=== PATIENT | female | born 1940 | race Asian ===

== ENCOUNTER 2024-02-01 22:45 | Observation (INO) | payer OTHER ==
[2024-02-01 22:55] VITALS: BMI 22.6
[2024-02-02 00:03] LABS: VENOUS BASE EXCESS 3.9 mmol/L (-2-2); VENOUS O2 SATURATION 28.2 % (70-80); VENOUS PCO2 63.3 mmHg (38-52); VENOUS PH 7.326 (7.310-7.410)
[2024-02-02 00:06] LABS: BASO % 0.3 % (0-2.0); EOS % 2.8 % (0-4.5); HEMATOCRIT 48.7 % (32.4-45.2); HEMOGLOBIN 16.7 GM/dL (10.7-15.3); LYMPH % 23.6 % (8-40); MCH 29.9 pg (25.7-33.7); MCHC 34.2 g/dl (32.0-36.0); MEAN CELL VOLUME 87.3 fl (80-96); MEAN PLT VOLUME 7.8 fl (7.5-11.1); MONO % 6.3 % (3.8-10.2); PLATELET COUNT 232 10^3/uL (134-434); RBC 5.58 M/mm3 (3.60-5.2); RDW 14.3 % (11.6-15.6); WHITE BLOOD COUNT 8.5 K/mm3 (4.0-10.0)
[2024-02-02] MEDS ORDERED: ACETAMINOPHEN INJECTION 100 ML IVPB ONE ×2 (00:07→11:42)
[2024-02-02 00:08] LABS: INR 1.85 (0.83-1.09); PROTHROMBIN TIME (PATIENT) 21.3 SEC (9.7-13.0)
[2024-02-02 00:11] LABS: ACTIVATED PTT 41.9 SECONDS (25.2-36.5)
[2024-02-02] MEDS: ACETAMINOPHEN 1000 MG/100 ML BAG IVPB ONE (00:14)
[2024-02-02 00:24] LABS: POTASSIUM 4.1 mmol/L (3.5-5.1)
[2024-02-02 00:26] LABS: ALBUMIN 4.4 g/dl (3.4-5.0); BLOOD UREA NITROGEN 22.1 mg/dL (7-18); CALCIUM 9.6 mg/dL (8.5-10.1); MAGNESIUM 2.3 mg/dL (1.8-2.4)
[2024-02-02 00:29] LABS: CREATININE 1.5 mg/dL (0.55-1.3)
[2024-02-02 00:31] LABS: BILIRUBIN,TOTAL 1.5 mg/dL (0.2-1); TOT PROT 8.3 g/dl (6.4-8.2)
[2024-02-02 00:35] LABS: N-TERMINAL BNP 3448.6 pg/ml (5-450)
[2024-02-02 01:33] LABS: PH,URINE 6.5 (5.0-8.0); URINE APPEARANCE CLEAR; URINE BILIRUBIN NEGATIVE (NEGATIVE); URINE COLOR YELLOW; URINE GLUCOSE (UA) 2+ (NEGATIVE); URINE KETONE NEGATIVE (NEGATIVE); URINE LEUK ESTERASE NEGATIVE (NEGATIVE); URINE NITRITE NEGATIVE (NEGATIVE); URINE PROTEIN NEGATIVE (NEGATIVE); URINE UROBILINOGEN 0.2 mg/dL (0.2-1.0)
[2024-02-02] MEDS: SODIUM CHLORIDE 0.9% 500 ML INFUS.BAG IV ONE (02:17)
[2024-02-02] MEDS ORDERED: ACETAMINOPHEN 1000 MG/100 ML BAG IVPB PRN (06:37)
[2024-02-02 07:03] LABS: BASO % 0.5 % (0-2.0); EOS % 1.7 % (0-4.5); HEMOGLOBIN 16.6 GM/dL (10.7-15.3); LYMPH % 27.4 % (8-40); MCH 29.2 pg (25.7-33.7); MCHC 33.2 g/dl (32.0-36.0); MEAN CELL VOLUME 88.1 fl (80-96); MEAN PLT VOLUME 7.8 fl (7.5-11.1); MONO % 6.7 % (3.8-10.2); NEUT % 63.7 % (42.8-82.8); PLATELET COUNT 240 10^3/uL (134-434); RBC 5.68 M/mm3 (3.60-5.2); RDW 13.8 % (11.6-15.6); WHITE BLOOD COUNT 8.2 K/mm3 (4.0-10.0)
[2024-02-02 07:19] LABS: POTASSIUM 3.5 mmol/L (3.5-5.1)
[2024-02-02 07:23] LABS: CALCIUM 9.2 mg/dL (8.5-10.1)
[2024-02-02 07:24] LABS: MAGNESIUM 2.3 mg/dL (1.8-2.4)
[2024-02-02 07:26] LABS: ALBUMIN 4.2 g/dl (3.4-5.0)
[2024-02-02 07:29] LABS: CREATININE 1.3 mg/dL (0.55-1.3); PHOSPHOROUS 4.4 mg/dL (2.5-4.9); TOT PROT 7.7 g/dl (6.4-8.2)
[2024-02-02] MEDS: INSULIN ASPART SLIDING SCALE (NOVOLOG) 1 VIAL SQ SCH (07:30)
[2024-02-02 07:31] LABS: BILIRUBIN,TOTAL 1.5 mg/dL (0.2-1)
[2024-02-02] MEDS ORDERED: MECLIZINE HCL 25 MG TABLET (FP) PO PRN (08:27)
[2024-02-02] MEDS ORDERED: APIXABAN 5 MG TABLET PO SCH (10:00)
[2024-02-02] MEDS ORDERED: LOSARTAN POTASSIUM 25 MG TABLET ONE (11:41)
[2024-02-02] MEDS ORDERED: METOPROLOL TARTRATE 50 MG TABLET (FP) ONE (11:41)
[2024-02-02] MEDS ORDERED: CLOPIDOGREL BISULFATE 75 MG TABLET (FP) ONE (11:41)
[2024-02-02] MEDS ORDERED: amLODIPine BESYLATE 5 MG TABLET (FP) ONE (11:41)
[2024-02-02] MEDS: SODIUM CHLORIDE 1,000 ML IV SCH (11:49)
[2024-02-02] MEDS: CLOPIDOGREL BISULFATE 75 MG TABLET (FP) PO SCH (12:30)
[2024-02-02] MEDS: amLODIPine BESYLATE 5 MG TABLET (FP) PO SCH (12:30)
[2024-02-02] MEDS: MEMANTINE HCL 5 MG TABLET (UD) PO SCH (12:30)
[2024-02-02] MEDS: LOSARTAN POTASSIUM 25 MG TABLET PO SCH (12:30)
[2024-02-02] MEDS: DONEPEZIL HCL 10 MG TABLET (FP) PO SCH (18:59)
[2024-02-02] MEDS: APIXABAN 2.5 MG TABLET PO SCH (21:27)
[2024-02-02] MEDS: ATORVASTATIN CA 40 MG TABLET (FP) PO SCH (21:27)
[2024-02-02] MEDS ORDERED: ATORVASTATIN CA 10 MG TABLET (FP) PO SCH (22:00)
[2024-02-03 08:34] LABS: BASO % 0.2 % (0-2.0); EOS % 3.2 % (0-4.5); HEMATOCRIT 48.7 % (32.4-45.2); HEMOGLOBIN 16.7 GM/dL (10.7-15.3); LYMPH % 32.5 % (8-40); MCH 29.8 pg (25.7-33.7); MCHC 34.2 g/dl (32.0-36.0); MEAN CELL VOLUME 87.3 fl (80-96); MEAN PLT VOLUME 8.2 fl (7.5-11.1); MONO % 7.4 % (3.8-10.2); NEUT % 56.7 % (42.8-82.8); PLATELET COUNT 259 10^3/uL (134-434); RBC 5.58 M/mm3 (3.60-5.2); WHITE BLOOD COUNT 7.7 K/mm3 (4.0-10.0)
[2024-02-03 08:51] LABS: POTASSIUM 3.6 mmol/L (3.5-5.1)
[2024-02-03 08:58] LABS: CALCIUM 9.4 mg/dL (8.5-10.1)
[2024-02-03 09:02] LABS: CREATININE 1.5 mg/dL (0.55-1.3)
[2024-02-03 09:04] LABS: BILIRUBIN,TOTAL 1.2 mg/dL (0.2-1); TOT PROT 7.2 g/dl (6.4-8.2)
[2024-02-03 10:00] VITALS: PULSE 16
[2024-02-03] MEDS: SODIUM CHLORIDE 1,000 ML IV SCH (11:38)
[2024-02-03 14:59] VITALS: BP 125/76; RESP 78; TEMP 97.5
== END 2024-02-03 18:05 | disposition home health service (06) ==
LOC: JER 22:45 → JERBED 02-02 05:37 → J4W 02-02 16:51
PROVIDERS: ADMIT Internal Medicine; ATTEND Nurse Practitioner
PROC: 3E033NZ Introduction of Analgesics, Hypnotics, Sedatives into Peripheral Vein, Percutaneous Approach (ICD-10-PCS; principal; 2024-02-02)
PROC: 3E0337Z Introduction of Electrolytic and Water Balance Substance into Peripheral Vein, Percutaneous Approach (ICD-10-PCS; 2024-02-02)
DX: N17.9 Acute kidney failure, unspecified (principal); I48.91 Unspecified atrial fibrillation; E78.5 Hyperlipidemia, unspecified; E11.9 Type 2 diabetes mellitus without complications; R42 Dizziness and giddiness; I69.854 Hemiplegia and hemiparesis following other cerebrovascular disease affecting left non-dominant side; I10 Essential (primary) hypertension
CPT/HCPCS: 0241U-QW; 36415; 70450-TC; 70496-TC; 70551-TC; 71045-TC-FY; 80053; 80061; 81003; 82803; 82962; 83036; 83690; 83735; 83880; 84100; 84484; 85025; 85610; 85730; 86850; 86900; 86901; 87086; 93005; 93010; 93306-TC; 96361; 96374; 97116-GP; 97162-GP; 99285-25; G0378; J0131